=== PATIENT | female | born 1960 | race Caucasian/White ===

== ENCOUNTER → 2017-03-10 | Outpatient (CLI) | payer OTHER ==
[~2017-03-10] MED LIST: ADVIL200 M1 PO; CALCIUM CITRAT1 EA15 PO; COLACE100 MG PO; FLEXERIL PO; HYDROCODON-ACE1 EAC8 PO; IBUPROFEN 200200 M1 PO; NORCO 5-325 TA1 EACH PO; ONDANSETRON HCL4 M2 PO; PREDNISONE 10 M10 M1 PO; REBIF SUBQ
== END ==
LOC: RAD
DX: Z12.31 Encounter for screening mammogram for malignant neoplasm of breast (principal)

== ENCOUNTER → 2017-03-25 | Outpatient (CLI) | payer OTHER | LOC: ULTRA 10:16 | DX: Q83.1 Accessory breast (principal) ==

== ENCOUNTER 2017-04-06 05:17 | Day surgery (SDC) | payer OTHER ==
[~2017-04-06] VITALS: Ht 170.2 cm; Wt 78.0 kg
--- NOTE | ~2017-04-06 | O ---
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 Final pathology pending. OPERATIVE PROCEDURE: Left breast nipple areolar complex biopsy (12, 6, 9 -- nipple). SURGEON: Marlon Feliciano M.D. INDICATIONS: This 56-year-old lady had a right invasive ductal breast cancer diagnosed in 1993 with subsequent mastectomy and limited axillary dissection followed by reconstruction. She had recurrence in 2000 with a full axillary dissection followed by radiation therapy. She had chemotherapy following both episodes. She has progressed well until approximately 5 months ago when she began to have some bloody serous nipple discharge with some change in the thickening of the skin and density of the nipple areolar complex skin. She denies any other mass in the breast or erythema of the remaining breast skin. A mammogram demonstrated only the thickening of the nipple areolar complex skin and ultrasound did not demonstrate any mass in the retroareolar tissues. The patient requires multiple excisional biopsies of the nipple areolar complex for definitive diagnosis. OPERATIVE PROCEDURE: The patient had a thorough discussion in the office of the procedure, benefits, risks. She gave informed consent to proceed. She was brought to the operating room suite and had satisfactory induction of general laryngeal mask anesthesia. Appropriate marking had been performed in the preoperative area. A sterile paint only was then performed of the breast after draping was completed, an appropriate timeout was then performed. 0.5% plain Naropin was infiltrated circumferentially in the skin of the breast tissue approximately 1-2 cm lateral and distant from the areolar margin. The initial biopsy was performed from the 12 position at the areolar margin with a 1-2 cm ellipse of full thickness skin tissue and some underlying adipose tissue excised. Attention was then turned to the 6 o'clock position of the nipple [address] [address] OPERATIVE REPORT Name: VIRAJ LOWRY Room #: 150-1 [facility]#: [id number] Admission: 04/06/17 Attend Phys: Marlon Feliciano MD, F Discharge: Date of : 56 Report #: [id number] areolar complex and again a full thickness biopsy of the skin tissue was performed. Each of these were submitted separately and placed immediately into a formalin tissue container. The third biopsy came from the 9 position transversally involving the mid portion of the nipple areolar complex and also extending to the areolar margin medially to the border of the normal skin of the breast. This also included some underlying adipose and breast tissue. All was submitted separately in formalin. The 3 biopsy sites were then packed with some Surgicel solution to assist in hemostasis. Surgicel was removed and 4-0 interrupted Vicryl clear sutures were utilized then to approximate the skin margins at the 12, 6 and 9 positions. Silvadene ointment was applied followed by Xeroform gauze. Fluff dressings of 4 x 4s were then placed. A Kerlix roll was wrapped around the chest to apply some compression as well as an Earl wrap was applied around the chest for compression of the left breast biopsy sites. The estimated blood loss for the entire procedure was less than 5 mL. The patient tolerated the procedure well and she returned to recovery room in stable and satisfactory condition. She was discharged home with Parlin 5/325 mg tablets, #30. She will return to the office in 1 week for followup care and discussion of final pathology results. <ELECTRONICALLY SIGNED> By: Marlon Feliciano MD, FACS 04/08/17 0959 1715 1802 Marlon Feliciano MD, FACS /nt
--- NOTE | ~2017-04-06 | S ---
[facility] [place] [address] [place] [address] SURGICAL PATH RPT PROCEDURE Name: ZURI LOWRY Room #: 150-1 [facility] M.R.#: [id number] Admission: 04/06/17 Date of : 56 Discharge: Report #: [id number] Path Case #: [id number] PATHOLOGY REPORT COLLECTION DATE: 04/06/2017 RECEIVED DATE: 04/06/2017 SUBMITTING PHYS: Dr. Marlon Feliciano OTHER PHYS: Dr. Prasad Thrasher SPECIMEN(S) RECEIVED: A.Left breast biopsy-12 B.Left breast biopsy-6 C.Left breast and nipple biopsy-9 and nipple * * * * * * * * * * * * FINAL DIAGNOSIS: A. Breast, left breast 12:00, excisional biopsy: - PAGET'S DISEASE OF THE NIPPLE. - Marked chronic inflammation within dermis. - Adjacent squamous epithelium showing reactive changes and ulceration. B. Breast, left breast 6:00, excisional biopsy: - PAGET'S DISEASE OF THE NIPPLE. - Marked chronic inflammation within dermis. - Adjacent squamous epithelium showing reactive changes and ulceration. C. Breast, left breast 9:00 and nipple, excisional biopsy: - PAGET'S DISEASE OF THE NIPPLE. - DUCTAL CARCINOMA IN SITU, OF COMEDO TYPE, CRIBRIFORM AND FOCAL MICROPAPILLARY TYPE, HIGH NUCLEAR GRADE. - Extensive ulceration of the skin present. - Focal area suspicious for dermal lymph-vascular space invasion present. - Focal reactive squamous epithelium without malignancy present. COMMENT: Clinic Lpn slides were co-reviewed by Dr. Bruna Jensen. Findings of this case are discussed with Dr. Marlon Feliciano at 10:00 a.m. on 04/08/2017. ER and AR are ordered on block C1. Results of these will be reported in a separate scanned image to follow. PATHOLOGIST: Delmis Lange M.D. REPORT ELECTRONICALLY SIGNED BY: Delmis Lange M.D. DATE/TIME: 04/08/2017 12:41 * * * * * * * * * * * * [address] [address] SURGICAL PATH RPT PROCEDURE Name: ZURI LOWRY Room #: 150-1 [facility] M.R.#: [id number] Admission: 04/06/17 Date of : 56 Discharge: Report #: [id number] Path Case #: [id number] GROSS PATHOLOGY: A. The specimen is received in formalin labeled "Zuri Lowry, left breast 12:00". Received is an ellipse of pale rodarte, slightly granular skin measuring 1.0 x 0.4 x 0.8 cm in greatest dimensions. The surgical margin is inked. The specimen is longitudinally bisected and entirely submitted in cassette A1. The cold ischemic time is less than 1 minute. The total formalin fixation time is 27 hours and 6 minutes. B. The specimen is received in formalin labeled "Zuri Lowry, left breast 6:00". Received is an ellipse of pale rodarte, slightly granular skin measuring 1.1 x 0.5 x 0.5 cm in greatest dimensions. The surgical margin is inked. The specimen is large Marlen bisected and entirely submitted in cassette B1. Also received within the specimen container is a segment of yellow-rodarte lobulated tissue measuring 3.2 x 1.0 x 0.5 cm in greatest dimensions. The surgical margin is inked. Sectioning reveals pale rodarte to yellow-rodarte cut surfaces throughout. The specimen is submitted entirely in cassette B2. The cold ischemic time is less than 1 minute. The total formalin fixation time is 27 hours and 1 minute. C. The specimen is received in formalin labeled "Zuri Lowry, left breast 9:00 and nipple". Received is a segment of pale rodarte soft tissue with a slight amount of attached pale rodarte, grossly unremarkable skin measuring 1.5 x 1.1 x 0.3 cm in greatest dimensions. The surgical margin is inked. The specimen is quadrisected and entirely submitted in cassette C1. The cold ischemic time is less than 1 minute. Total formalin fixation time is 26 hours and 57 minutes. (CAA; 04/07/2017) CLINICAL HISTORY: Bloody nipple discharge, possible Paget's disease left nipple and areola complex INITIAL CPT CODE(S): A; 88819 B; 01335 C; 57470, 87419(2) Professional services performed by [facility] at [address], [place] [address] Technical services performed by [facility] at [address] [place] [address], [address], [place] [address]. [address] [address] SURGICAL PATH RPT PROCEDURE Name: ZURI LOWRY Room #: 150-1 [facility] M.R.#: [id number] Admission: 04/06/17 Date of : 56 Discharge: Report #: [id number] Path Case #: [id number] [facility] [address] [address] PHONE: [phone] DIRECTOR: Jules Rider M.D. * * * END OF REPORT * * *
--- NOTE | ~2017-04-06 | EKG ---
[address] [address] ELECTROCARDIOGRAM REPORT Name: VIRAJ LOWRY Room #: 150-1 [facility]..#: [id number] Admission: 04/06/17 Attend Phys: Marlon Feliciano MD, F Discharge: Date of : 56 Report #: [id number] THIS REPORT FOR: //name// [facility] Test Date: 2017-04-06 Test Time: 12:36:06 Pat Name: VIRAJ LOWRY Department: Room: 150 Gender: F Power Lineworker: JESSICA : 1960 Requested By: Marlon Feliciano Order Number: [id number] MD: Sadi Gutierrez Measurements Intervals [place] Rate: 86 P: 78 [place]: 154 QRS: 44 QRSD: 90 T: 35 QT: 390 QTc: 467 Interpretive Statements Sinus rhythm Compared to ECG 01/08/2015 13:39:23 No significant changes Electronically Signed On 04-06-2017 16:11:34 CDT by Sadi Gutierrez [email or web address] <ELECTRONICALLY SIGNED> By: Sadi Gutierrez MD 04/06/17 1611 1236 1236 Sadi Gutierrez MD /SOL
[2017-04-06 12:38] LABS: HEMATOCRIT 43.5 % (37.0-47.0); HEMOGLOBIN 14.7 gm/dL (12.0-15.0); MCH 32.1 pg (26.0-34.0); MCHC 33.8 g/dL (28.0-37.0); MCV 94.9 fL (80.0-100.0); RBC 4.58 mil/uL (4.20-5.00); RDW 13.8 % (10.5-14.5); WBC 8.7 thou/uL (4.0-11.0)
[2017-04-06 12:48] LABS: CALCIUM 9.1 mg/dL (8.5-10.1); CREATININE 0.6 mg/dL (0.6-1.0); POTASSIUM 3.8 mmol/L (3.5-5.1)
[2017-04-06 12:52] LABS: ALBUMIN 3.9 g/dL (3.4-5.0); TOTAL BILIRUBIN 0.7 mg/dL (<0.1-1.0); TOTAL PROTEIN 6.7 g/dL (6.4-8.2)
[2017-04-06 15:10] VITALS: BP 116/82
[2017-04-06 15:47] VITALS: BP 116/82
== END 2017-04-06 16:05 | disposition home or self-care (01) ==
LOC: TBA 05:17 → OR 05:17 → TBA 05:18 → OR 09:05
PROVIDERS: Surgery
DX: C50.012 Malignant neoplasm of nipple and areola, left female breast (principal); N60.12 Diffuse cystic mastopathy of left breast; G35 Multiple sclerosis; F17.210 Nicotine dependence, cigarettes, uncomplicated; Z85.3 Personal history of malignant neoplasm of breast; Z98.890 Other specified postprocedural states
CPT/HCPCS: 50010; 50101; 50386; 50403; 56526; 56638; 62110; 62900; 64037; 70005

== ENCOUNTER 2017-04-28 05:21 | Day surgery (SDC) | payer OTHER ==
[~2017-04-28] VITALS: Ht 167.6 cm; Wt 76.7 kg
[2017-04-28] VITALS (8 sets, daily range): BP systolic 96–125; BP diastolic 67–78
--- NOTE | ~2017-04-28 | S ---
[facility] [place] [address] SURGICAL PATH RPT PROCEDURE Name: ZURI LOWRY Room #: DEP [facility]..#: [id number] Admission: 04/28/17 Date of : 56 Discharge: 04/29/17 Report #: [id number] Path Case #: [id number] PATHOLOGY REPORT COLLECTION DATE: 04/28/2017 RECEIVED DATE: 04/28/2017 SUBMITTING PHYS: Dr. Marlon Feliciano OTHER PHYS: Dr. Ermias Thrasher SPECIMEN(S) RECEIVED: A.Left breast B.Left axillary sentinel lymph node #1 C.Inferior margin, left breast inferior flap * * * * * * * * * * * * FINAL DIAGNOSIS: A. Breast, left breast, simple mastectomy: - PAGET'S DISEASE OF THE NIPPLE ASSOCIATED WITH DUCTAL CARCINOMA IN SITU OF COMEDO CRIBRIFORM AND SOLID TYPES, HIGH NUCLEAR GRADE. - Large biopsy cavity present underneath nipple. - Negative for invasive carcinoma. - Negative for lymph-vascular space invasion. - Margins of resection free of malignancy; closest superior anterior and inferior anterior margins are 3.5 cm away. - Skeletal muscle present at deep margin (at suture); negative for malignancy. B. Lymph node (one), left axillary sentinel lymph node # 1, biopsy: - Reactive lymph node negative for malignancy. - No isolated tumor cells or micrometastases present on AE1/AE3 immunohistochemical stain (0/1). C. Breast, inferior margin, left breast inferior flap, lumpectomy: - Fibrocystic changes and predominantly fatty tissue. - Negative for malignancy. SYNOPTIC CANCER STAGING REPORT CLINICAL Clinical History: Prior history of breast cancer Specify Site, Diagnosis, and Prior Treatment: right side 2000 Radiologic Finding: Other: indurated nipple areolar complex SPECIMEN Procedure: Total mastectomy (including nipple and skin) [facility] [address] [place] [address] SURGICAL PATH RPT PROCEDURE Name: ZURI LOWRY Room #: [facility]#: [id number] Admission: 04/28/17 Date of : 56 Discharge: 04/29/17 Report #: [id number] Path Case #: [id number] Lymph Node Sampling: [place] lymph node(s) Specimen Laterality: Left Tumor Site: Central Nipple TUMOR Size (Extent) of DCIS Estimated Size (extent) of DCIS (greatest dimension using gross and microscopic evaluation) is at Least (mm): 18 Histologic Type: Ductal carcinoma in situ. Classified as Tis (DCIS) or Tis (Paget) Architectural Patterns: Comedo Cribriform Micropapillary Solid Nuclear Grade: Grade III (high) Necrosis: Present, focal (small foci or single cell necrosis) MARGINS Margins uninvolved by DCIS Distance of DCIS from Closest Margin (mm): Distance is > 10 mm Closest Uninvolved Margin: Anterior LYMPH NODES [place]y and Non-Maxatawny Nodes Total Number of Lymph Nodes Examined (sentinel and nonsentinel): Specify: 1 Micro / Macro Metastases: Not identified Number of Lymph Nodes with Isolated Tumor Cells (<= 0.2 mm and <= 200 cells): None [place]wny Nodes Number of [place]y Lymph Nodes Examined: Specify: 1 Method of Evaluation of [place] Lymph Nodes: H-E, multiple levels Immunohistochemistry STAGE (PTNM) Primary Tumor (pT): pTis (Paget): Paget disease of the nipple NOT associated with invasive carcinoma and / or carcinoma Category (pN): pN0 (i-): No regional lymph node metastases histologically, negative IHC COMMENT: Immunohistochemical stains are performed. P63 on block A4 - Patchy reactivity. SMMHC on block A4 - Intact myoepithelial cells present AE1/AE3 on block A4 - Reactive GURPREET on block A4 - Reactive Melan A on block A4 - Non-reactive [facility] [address] [place] [address] SURGICAL PATH RPT PROCEDURE Name: ZURI LOWRY Room #: DEP [facility].#: [id number] Admission: 04/28/17 Date of : 56 Discharge: 04/29/17 Report #: [id number] Path Case #: [id number] AE1/AE3 immunohistochemical stain performed on block B1 - negative for metastatic carcinoma including micrometastases or isolated tumor cells. (IUV/db; 04/30/2017) PATHOLOGIST: Delmis Lange M.D. REPORT ELECTRONICALLY SIGNED BY: Delmis Lange M.D. DATE/TIME: 04/30/2017 16:12 * * * * * * * * * * * * GROSS PATHOLOGY: A. Specimen A is received fresh from the OR labeled with the patient's name, and "Left breast, long suture lateral, short suture superior, double strand suture D" consists of a 590 gram oriented mastectomy specimen measuring 18 x 15 x 8 cm. The skin overlying the mastectomy specimen is 16 x 9 cm. The nipple areolar complex is 2.5 cm and appears everted along with discoloration and edema. The superior margin is inked blue, the inferior margin is inked green, the medial margin is inked yellow and the deep margin is inked black. The deep double strand suture area is inked red. At this point, the specimen is serially sectioned and it shows a central large hematoma underneath the nipple measuring 3.5 x 3.5 x 3.5 cm. A discrete lesion is not identified. This hematoma is 3.5 cm from the superior as well as the inferior margins. It is 4.0 cm away from the deep margin. The specimen is representatively submitted as follows: A1 to A6 - entire nipple/areolar complex, A7 to A13 - c s s representative sections of the biopsy cavity and its surrounding breast tissue, A14 - c s s representative section of the upper inner quadrant, A15 - c s s representative section of the lower inner quadrant, A16 - c s s representative section of the upper outer quadrant, A17 - c s s representative section of the lower outer quadrant. Time removed from body is 11:41 a.m., time in formalin is 12:15 p.m. on 04/28/17. Time out of formalin 11:40 PM on 04/28/2017) (IUV/db; 04/28/2017) B. The specimen is received in formalin labeled "Zuir Lowry, left axillary sentinel lymph node-1". Received are multiple segments of yellow-rodarte lobulated tissue measuring 3.2 x 2.8 x 1.0 cm in aggregate dimensions. Sectioning reveals a single lymph node measuring 1.0 cm in maximum dimensions. The lymph node is submitted entirely in cassette B1. Immunohistochemical stain is ordered. C. The specimen is received in formalin labeled "Zuri Lowry, inferior margin left breast tissue, inferior flap". Received are multiple segments of yellow-rodarte lobulated tissue measuring 9.8 x 7.2 x 3.9 cm in aggregate dimensions. The surgical margins are inked black. Sectioning reveals bright yellow, lobulated cut surfaces throughout with no grossly distinct nodules or lesions. The specimen is submitted representatively in cassettes C1 through C8. The [address] [address] SURGICAL PATH RPT PROCEDURE Name: ZURI LOWRY Room #: [facility]..#: [id number] Admission: 04/28/17 Date of : 56 Discharge: 04/29/17 Report #: [id number] Path Case #: [id number] ischemic time is 10 minutes. The total formalin fixation time is 34 hours. (CAA; 04/29/2017) INTRAOPERATIVE CONSULTATION (Carlos Lange M.D.) Left breast, mastectomy: - Everted nipple areolar complex with discoloration and edema. - No discrete mass lesions or fibrotic foci identified within breast tissue Testing performed by Dr. Cisse at [address], [place] [address] CLINICAL HISTORY: History of Paget's disease along with solid type ductal carcinoma in situ, high nuclear grade. INITIAL CPT CODE(S): A; 66101, 91347, 68989, 86008, 02020, 56768, 08141 B; 38587, 00130 C; 36073 Professional services performed by [facility] at [facility] [address] [place] [address] Technical services performed by [employer] at [address] [place] [address], [address], [place] [address]. [facility] [address] [place] [address] PHONE: [phone] DIRECTOR: Jules Rider M.D. * * * END OF REPORT * * *
[2017-04-28 07:57] LABS: HEMATOCRIT 40.6 % (37.0-47.0); HEMOGLOBIN 13.7 gm/dL (12.0-15.0)
[2017-04-29 05:15] VITALS: BP 138/64
[2017-04-29 05:43] LABS: HEMOGLOBIN 12.2 gm/dL (12.0-15.0); MCH 31.7 pg (26.0-34.0); MCHC 33.9 g/dL (28.0-37.0); MCV 93.4 fL (80.0-100.0); RBC 3.85 mil/uL (4.20-5.00); RDW 13.7 % (10.5-14.5); WBC 12.8 thou/uL (4.0-11.0)
[2017-04-29 05:58] LABS: ALBUMIN 2.9 g/dL (3.4-5.0); CALCIUM 7.8 mg/dL (8.5-10.1); CREATININE 0.7 mg/dL (0.6-1.0); POTASSIUM 3.6 mmol/L (3.5-5.1); TOTAL BILIRUBIN 0.6 mg/dL (<0.1-1.0); TOTAL PROTEIN 5.5 g/dL (6.4-8.2)
[2017-04-29 07:45] VITALS: BP 113/66
[2017-04-29 15:26] LABS: HEMATOCRIT 34.9 % (37.0-47.0); HEMOGLOBIN 11.8 gm/dL (12.0-15.0); MCH 32.2 pg (26.0-34.0); MCHC 33.7 g/dL (28.0-37.0); MCV 95.4 fL (80.0-100.0); RBC 3.65 mil/uL (4.20-5.00); RDW 13.8 % (10.5-14.5)
[2017-04-29 17:52] VITALS: BP 113/66
== END 2017-04-29 18:12 | disposition home or self-care (01) ==
LOC: OR 05:21 → TBA 05:21 → OR 08:29 → 5S 15:06 → OR 16:00
PROVIDERS: Surgery
DX: D05.12 Intraductal carcinoma in situ of left breast (principal); N60.12 Diffuse cystic mastopathy of left breast; F17.210 Nicotine dependence, cigarettes, uncomplicated; Z98.890 Other specified postprocedural states
CPT/HCPCS: 50010; 50101; 50331; 50386; 50417; 50942; 51412; 56524; 56525; 56526; 56527; 56668; 62110; 62900; 70005

== ENCOUNTER → 2017-10-01 | Outpatient (CLI) | payer OTHER ==
[~2017-10-01] VITALS: Ht 167.6 cm; Wt 75.8 kg
[~2017-10-01] MED LIST changes: +ALEVE220 MG PO; +NABUMETONE 500500 M1 PO; +TRAMADOL 50 MG50 MG PO
--- NOTE | ~2017-10-01 | HPC ---
[facility] [place] [address] PAIN MANAGEMENT CONSULTATION Name: VIRAJ LOWRY [id number] Admission: 10/01/17 Attend Phys: Kulwinder López DO Discharge: Date of : 56 Report #: [id number] THIS REPORT FOR: //name// CC: Prasad López The patient is a pleasant 57-year-old female who works at [employer] [place] [employer]. She was seen on 09/02/2017, diagnosed with symptomatic lumbar radiculopathy, given epidural injection at that time. She had prior been seen back in 2013. She presents to the pain clinic today noting the injection afforded very good incremental relief, specifically noting 50% improvement. She is able to return to work. Now, the pain has begun to recur. She rates it as a 6 on the VAS. She states she is doing better overall. The pain still remains problematic in low back, left hamstring and leg. It is exacerbated with sitting, standing and walking. PHYSICAL EXAMINATION: This is a 57-year-old female, BMI is 27 kilograms per meter squared. Vital signs generally stable with modest hypertension 153/86, pulse 77, respirations 14. Rises from the chair using armrest. Gait is tandem. Still slight positive straight leg raise on the left, slight decreased left leg strength. ASSESSMENT: Symptomatic lumbar radiculopathy by clinical exam and history. RECOMMENDATIONS: 1. We will start the patient on Relafen 500 mg b.i.d. Discontinue [id number] Aleve. 2. Repeat epidural injection under fluoroscopy today. 3. Follow up in November. If no significant improvement of baseline pain, we will get an MRI at that time. PROCEDURE: Lumbar epidural steroid injection under fluoroscopy. PROCEDURE NOTE: After both written and informed consent to include risk of spinal cord damage, increased pain, weakness and dural puncture, the patient was taken to the fluoroscopy suite, placed in the prone position. After sterile prep and drape, a skin wheal with lidocaine was raised. A 22-gauge epidural Tuohy needle was inserted in the midline at L5-S1 with good loss to resistance. Negative aspiration for cerebrospinal fluid or blood was noted. Then 1 mL of Omnipaque under biplanar fluoroscopy showed good spread within the epidural space. This was followed with 80 mg of triamcinolone plus 1 mL of 1.5% preservative-free Xylocaine, 0.5 mL Xylocaine was then injected to flush the [facility] [address] [place] [address] PAIN MANAGEMENT CONSULTATION Name: VIRAJ LOWRY [facility] [id number] Admission: 10/01/17 Attend Phys: Kulwinder López DO Discharge: Date of : 56 Report #: [id number] needle; it was removed. The patient was monitored for an appropriate period of time and discharged in good and stable condition. <ELECTRONICALLY SIGNED> By: Kulwinder López DO 10/04/17 0759 1035 1511 Kulwinder López DO /nt
[2017-10-01 12:34] VITALS: BP 153/86
== END | disposition home or self-care (01) ==
LOC: PAIN 06:50
DX: M54.16 Radiculopathy, lumbar region (principal); G89.29 Other chronic pain; F17.210 Nicotine dependence, cigarettes, uncomplicated

== ENCOUNTER → 2019-05-23 | Outpatient (CLI) | payer OTHER | LOC: RAD 15:04 | DX: S22.22XA Fracture of body of sternum, initial encounter for closed fracture (principal); X58.XXXA Exposure to other specified factors, initial encounter; Y93.89 Activity, other specified; Y92.89 Other specified places as the place of occurrence of the external cause; Y99.8 Other external cause status ==

== ENCOUNTER → 2019-06-21 | Outpatient (CLI) | payer OTHER | LOC: NUC 13:08 | DX: M85.89 Other specified disorders of bone density and structure, multiple sites (principal); Z78.0 Asymptomatic menopausal state ==

== ENCOUNTER 2020-05-05 11:08 | Emergency (ER) | payer OTHER ==
[~2020-05-05] VITALS: Ht 167.6 cm; Wt 78.0 kg
[2020-05-05] MEDS ORDERED: CELEXA 20 MG TA20 MG PO (11:21)
[2020-05-05 12:55] VITALS: BP 122/69
[2020-05-05] MEDS ORDERED: NORCO 5-325 TA1 EAC2 PO (13:04)
== END 2020-05-05 13:26 | disposition home or self-care (01) ==
LOC: ER 11:08
DX: S52.501A Unspecified fracture of the lower end of right radius, initial encounter for closed fracture (principal); S00.211A Abrasion of right eyelid and periocular area, initial encounter; F17.210 Nicotine dependence, cigarettes, uncomplicated; Z79.899 Other long term (current) drug therapy; W18.39XA Other fall on same level, initial encounter; Y93.89 Activity, other specified; Y92.002 Bathroom of unspecified non-institutional (private) residence as the place of occurrence of the external cause; Y99.8 Other external cause status